=== PATIENT | male | born 1945 | race Caucasian/White ===

== ENCOUNTER → 2016-05-16 | Outpatient (CLI) | payer MEDICARE, OTHER ==
[2016-05-16 08:35] LABS: BASOPHILS % (AUTO) 0 % (0-2); EOSINOPHILS # (AUTO) 0.4 10^3uL; EOSINOPHILS % (AUTO) 6 % (0-4); LYMPHOCYTES # (AUTO) 1.6 X10^3; MEAN CORPUSCULAR HEMOGLOBIN 30.6 PG (26.0-34.0); MEAN CORPUSCULAR HGB CONC 33.2 g/dL (31.0-37.0); MEAN CORPUSCULAR VOLUME 92 FL (80-100); MEAN PLATELET VOLUME 9.6 FL (6.0-9.5); MONOCYTES # (AUTO) 0.4 X10^3; MONOCYTES % (AUTO) 6 % (3-11); NEUTROPHILS # (AUTO) 4.5 X10^3; NEUTROPHILS % (AUTO) 65 % (51-67); PLATELET COUNT 253 10^3uL (150-450); WHITE BLOOD COUNT 6.88 10^3uL (4.0-11.0)
[2016-05-16 09:29] LABS: ALBUMIN 3.8 g/dL (3.4-5.0); ANION GAP 13.2 MEQ/L (3-15); CALCULATED IONIZED CALCIUM 4.3 mg/dL (3.8-4.6); TOTAL PROTEIN 6.6 g/dL (6.4-8.5)
[2016-05-16 09:30] LABS: ERYTHROCYTE SEDIMENTATION RT* 16 mm/hr (0-19)
== END ==
LOC: LAB 08:24
PROVIDERS: ATTEND Family Medicine
DX: D50.8 Other iron deficiency anemias (principal); R79.89 Other specified abnormal findings of blood chemistry; E03.4 Atrophy of thyroid (acquired); E27.1 Primary adrenocortical insufficiency
CPT/HCPCS: 36415; 80053; 82533; 84436; 84443; 85025; 85652